=== PATIENT | female | born 1940 | race Two or more races ===

== ENCOUNTER 2024-11-29 11:12 | Emergency (ER) | payer OTHER ==
[~2024-11-29] VITALS: Ht 152.4 cm; Wt 69.9 kg
[2024-11-29] MEDS ORDERED: ARBLI10 MG/1 ML PO (11:26)
[2024-11-29] MEDS ORDERED: TOPROL XL25 M1 (11:26)
[2024-11-29] MEDS ORDERED: DIOVAN40 MG PO (11:27)
[2024-11-29] MEDS ORDERED: KETOROLAC TROMETHAMINE 30 MG VIAL IM ONE (11:45)
[2024-11-29] MEDS ORDERED: ORPHENADRINE CITRATE 30 MG/ML AMPUL IM ONE (11:45)
[2024-11-29] MEDS ORDERED: NORFLEX100MG PO (12:36)
== END 2024-11-29 12:48 | disposition home or self-care (01) ==
LOC: ER 11:12
DX: M54.9 Dorsalgia, unspecified (principal); I10 Essential (primary) hypertension
CPT/HCPCS: 72070; 72100; 96372; 99283; J1885; J2360

== ENCOUNTER 2024-12-04 09:04 | Emergency (ER) | payer OTHER ==
[~2024-12-04] VITALS: Ht 152.4 cm; Wt 68.0 kg
[~2024-12-04 09:04] MED LIST: ARBLI10 MG/1 ML PO; DIOVAN40 MG PO; NORFLEX100MG PO; TOPROL XL25 M1
[2024-12-04] MEDS ORDERED: ORPHENADRINE CITRATE 30 MG/ML AMPUL ONE (09:56)
[2024-12-04] MEDS ORDERED: KETOROLAC TROMETHAMINE 30 MG VIAL ONE (09:56)
[2024-12-04] MEDS ORDERED: KETOROLAC TROMETHAMINE 30 MG IM ONE (10:00)
[2024-12-04] MEDS ORDERED: ORPHENADRINE CITRATE 30 MG/ML AMPUL IM ONE (10:00)
[2024-12-04] MEDS ORDERED: KETOROLAC TROMETHAMINE 30 MG VIAL IM ONE (10:15)
== END 2024-12-04 10:37 | disposition home or self-care (01) ==
LOC: ER 09:04
DX: M54.6 Pain in thoracic spine (principal); I10 Essential (primary) hypertension
CPT/HCPCS: 96372; 99282; J1885; J2360